=== PATIENT | female | born 1970 ===

== ENCOUNTER 2022-07-21 14:19 | Emergency (ER) | payer OTHER, MEDICAID, SELFPAY ==
--- NOTE | 2022-07-21 14:36 | ED.URI ---
HPI - URI/Sore Throat General Chief Complaint: Upper Respiratory Infection Stated Complaint: sorethroat,headache Time Seen by Provider: 07/21/22 14:36 Source: patient Mode of arrival: ambulatory Limitations: no limitations History of Present Illness HPI Narrative: Elizabeth is a 52-year-old female patient presenting to the clinic today with complaints of sore throat, headache and chills x3 days. She reports a lot of her coworkers have been sick at work but she is unaware what type of illnesses they have had. she also reports some right-sided flank pain it has been radiating into her right groin. States that she has a history kidney stones. She denies any Burning, frequency, or urgency but has had some blood in her urine with this pain. She thinks she may be passing another kidney stone. MD elicited complaint: sore throat, nasal congestion ( flank pain, hematuria) and other ( headache) Related Data Allergies Allergy/AdvReac Type Severity Reaction Status Date / Time No Known Allergies Allergy Unknown Verified 08/06/15 12:39 Review of Systems Review of Systems: Pertinent positives per HPI. Patient denies any fever, rash, visual changes, dizziness, cough, shortness of breath, chest pain, palpitations, nausea, vomiting, diarrhea, constipation, or any abdominal pain. [facility] Past Medical History Medical History (Updated 07/21/22 @ 15:08 by Claudio Goetz APRN) Depression GERD (gastroesophageal reflux disease) Hyperlipidemia Controlled Nicotine dependence Obesity Osteoarthritis Surgical History Surgical History Hx of hysterectomy Family History Family History Mother Diabetes mellitus Family history of mental disorder Family history of arthritis Social History Social History Smoking packs per day: 1 Smoking cigarettes per day: 20.0 Smoking status: Heavy tobacco smoker Tobacco type: cigarettes Alcohol intake: current Comments At the time of my signature, I reviewed and agree with the nursing past medical, surgical, social, and family history. There is no relevant family history pertinent to the patient complaint. Exam Narrative: General: Well-developed, well nourished, in no apparent distress Head: Normocephalic, atraumatic Eyes: Pupils equally round and reactive to light bilaterally, EOM intact, sclera and conjunctive clear, no discharge, lids normal Ears: TMs intact and clear, ear canals clear, no drainage, grossly hearing normal. Nose: Nares patent, no discharge, no inflammation, no sinus tenderness. Mouth: Oral pharynx without lesions or masses, good dentition, MMM. Neck: Supple, trachea midline, no enlargement of anterior or posterior cervical nodes, no thyroid masses or goiter palpable. Cardio: Regular rate and rhythm, s1 and s2 normal, no murmur appreciated. Resp: Clear to auscultation bilaterally, no rhonchi, rales, wheezing or rubs Abdomen: Soft, pliable, mild tenderness to palpation over the left upper abdomen. Bowel sounds present all 4 quadrants some. Positive CVAT tenderness to the right Course Course Emergency Course: Portions of this record may have been created with voice recognition software. Level of Care: Express Care Visit Vital Signs Vital signs: Vital Signs Temperature 36.6 C 07/21/22 14:43 Pulse Rate 58 L 07/21/22 14:43 Respiratory Rate 18 07/21/22 14:43 Blood Pressure 155/95 H 07/21/22 14:43 Pulse Oximetry 100 07/21/22 14:43 Oxygen Delivery Room Air 07/21/22 14:43 Temperature 36.6 C 07/21/22 14:43 Pulse Rate 58 L 07/21/22 14:43 Respiratory Rate 18 07/21/22 14:43 Blood Pressure 155/95 H 07/21/22 14:43 Pulse Oximetry 100 07/21/22 14:43 Oxygen Delivery Room Air 07/21/22 14:43 Vital signs reviewed MDM - URI/Sore Throat MDM Na
[2022-07-21 14:43] VITALS: BP 155/95; PULSE 58; RESP 18; TEMP 36.6; O2SAT 100
== END 2022-07-21 15:17 | disposition home or self-care (01) ==
PROVIDERS: Emergency Provider Nurse Practitioner Family; PCP Family Medicine
DX: N30.01 Acute cystitis with hematuria (principal); J02.9 Acute pharyngitis, unspecified; Z87.442 Personal history of urinary calculi; F17.210 Nicotine dependence, cigarettes, uncomplicated; K21.9 Gastro-esophageal reflux disease without esophagitis; E78.5 Hyperlipidemia, unspecified; M19.90 Unspecified osteoarthritis, unspecified site; E66.9 Obesity, unspecified; Z68.27 Body mass index [BMI] 27.0-27.9, adult; F32.A Depression, unspecified
CPT/HCPCS: 81003; 87081; 87086; 87088; 87147; 87880; 99213; G0463

== ENCOUNTER 2023-11-06 14:55 | Emergency (ER) | payer OTHER, SELFPAY ==
--- NOTE | 2023-11-06 14:57 | ED.GENADULT ---
HPI - General Adult General Chief complaint: Dental/Oral Stated complaint: Lt Tooth Pain Time Seen by Provider: 11/06/23 14:57 Source: patient Mode of arrival: ambulatory Limitations: no limitations History of Present Illness HPI narrative: 53-year-old female patient presents to the [facility] with complaints of left upper tooth pain that started to get worse yesterday but states she has is been there for about a week. Patient states no fevers, body aches or chills. Patient states she know she has a bad tooth in the back that needs to be removed but it does not have a current dentist at this time. Patient states that she noticed she had some facial swelling starting today. Related Data Home Medications Medication Instructions Recorded Confirmed calcium-vitamin D3-vitamin K 500 1 tablet PO TID 11/06/23 11/06/23 mg-100 unit-40 mcg chewable tablet multivit,Ca,iron,[id number]-[id number]-QYLD cap PO 11/06/23 3 mg-133 mcg capsule (Body, Hair, Skin and Nails) afpxzjpa-[id number]-[id number] 45 mg-folic cap PO 11/06/23 acid 800 mcg-vit K 120 mcg capsule (Bariatric Multivitamins) Allergies Allergy/AdvReac Type Severity Reaction Status Date / Time No Known Allergies Allergy Unknown Verified 11/06/23 15:06 Review of Systems Review of Systems: CONSTITUTIONAL: Denies fever, chills, or sweats. EYES: Denies visual changes, redness, or discharge. ENT: Denies rhinorrhea, congestion, sore throat, or otalgia. Positive left upper dental pain CARDIOVASCULAR: Denies chest pain, palpitations, or edema. RESPIRATORY: Denies cough or dyspnea. GASTROINTESTINAL: Denies abdominal pain, nausea, vomiting, or diarrhea. GENITOURINARY: Denies dysuria or hematuria. SKIN: Denies rash or itching. MUSCULOSKELETAL: Denies back pain, joint pain, or myalgia. NEUROLOGIC: Denies headache, numbness, or weakness. PSYCHIATRIC: Denies anxiety or depression. [facility] Past Medical History Medical History Depression GERD (gastroesophageal reflux disease) Hyperlipidemia Controlled Nicotine dependence Obesity Osteoarthritis Surgical History Surgical History Hx of hysterectomy Family History Family History Mother Diabetes mellitus Family history of mental disorder Family history of arthritis Social History Social History Smoking packs per day: 1 Smoking cigarettes per day: 20.0 Smoking status: Current every day smoker Tobacco type: cigarettes Alcohol intake: current Comments At the time of my signature I agree with nursing past medical history, surgical, social, and family history. There is no relevant family history pertinent to the presenting complaint. Exam Narrative: GENERAL: Well-appearing, well-nourished, and in no acute distress. HEAD: Normocephalic, atraumatic. EYES: PERRLA and EOMI. ENT: Nares clear, no rhinorrhea or epistaxis. Mucous membranes moist. patient does have some swelling around the left upper molar and what appears to be a palpated ABS says to the back corner of the jaw into the left cheek. No open wounds or drainage at this time. Patient does have slight swelling noted to the left cheek on observation. NECK: Supple. No lymphadenopathy CHEST: Clear to auscultation. No respiratory distress. HEART: Regular rate and rhythm. No murmur heard. Normal peripheral pulses. ABDOMEN: Soft, nontender, nondistended, normal active bowel sounds. EXTREMITIES: Normal range of motion. No edema. SKIN: Warm, dry, no rash. NEURO: No focal deficits. Alert and oriented x3. Course Course Level of Care: Express Care Visit Vital Signs Vital signs: Vital Signs Temperature 36.7 C 11/06/23 15:05 Pulse Rate 57 L 11/06/23 15:05 Respiratory Rate 18 11/06/23 15:05 Blood Pressure 152/8
[2023-11-06 15:05] VITALS: BP 152/86; PULSE 57; RESP 18; TEMP 36.7; O2SAT 100
[2023-11-06 15:08] VITALS: BP 152/86; PULSE 57; RESP 18; TEMP 36.7; O2SAT 100
== END 2023-11-06 15:20 | disposition home or self-care (01) ==
PROVIDERS: Emergency Provider Nurse Practitioner Family; PCP Family Medicine
DX: K04.7 Periapical abscess without sinus (principal); F17.210 Nicotine dependence, cigarettes, uncomplicated; K21.9 Gastro-esophageal reflux disease without esophagitis; E78.5 Hyperlipidemia, unspecified; E66.9 Obesity, unspecified; Z68.30 Body mass index [BMI] 30.0-30.9, adult; M19.90 Unspecified osteoarthritis, unspecified site
CPT/HCPCS: 99213; G0463